=== PATIENT | female | born 1970 | race African-American/Black ===

== ENCOUNTER 2018-07-18 11:51 | Day surgery (SDC) | payer BC, OTHER ==
[~2018-07-18 11:51] MED LIST: DILAUDID IV PRN; LACTATED RINGERS 1,000 ML IV SCH; VERSED IV NR; ZOFRAN IV PRN
[2018-07-18] MEDS ORDERED: DECADRON ONE (13:44)
[2018-07-18] MEDS ORDERED: XYLOCAINE MPF 2% ONE (13:44)
[2018-07-18] MEDS ORDERED: DILAUDID ONE (13:44)
[2018-07-18] MEDS ORDERED: DIPRIVAN 10 MG/ML IV ONE (13:44)
[2018-07-18] MEDS ORDERED: ZOFRAN ONE (13:44)
--- NOTE | 2018-07-18 13:52 | Anesthesia Day of Surgery ---
Anesthesia Day of Surgery - Day of Surgery Patient Examined: Yes Patient H&P Reviewed: Yes Patient is NPO: Yes
--- NOTE | 2018-07-18 13:52 | Anesthesia Consultation ---
Anesthesia Consult and Med Hx Date of service: 07/18/18 - Airway Anesthetic Teeth Evaluation: Good ROM Head & Neck: Adequate Mental/Hyoid Distance: Adequate Mallampati Class: Class II Intubation Access Assessment: Probably Good - Pulmonary Exam CTA: Yes - Cardiac Exam Cardiac Exam: RRR - Pre-Operative Health Status ASA Pre-Surgery Classification: ASA1 Proposed Anesthetic Plan: General - Pulmonary Hx Smoking: No Hx Sleep Apnea: No (LUKAS PRE SCREEN LOW RISK.) - Cardiovascular System Hx Hypertension: No - Other Systems Hx Cancer: No
[2018-07-18] MEDS ORDERED: ANCEF/STERILE WATER 2 GM/20 ML IV NR (14:00)
[2018-07-18] MEDS ORDERED: WATER FOR IRRIG STERILE IR ONE (14:50)
--- NOTE | 2018-07-18 14:51 | Post Operative Note ---
Date of procedure: 07/18/18 Pre-op diagnosis: hematuria Post-op diagnosis: same Findings: swelling R orifice lesion Procedure: cysto biopsy rpgs Anesthesia: GETA Surgeon: RAMOS PEREZ Estimated blood loss: minimal Pathology: list (bladder) Specimen disposition: to lab Condition: stable Disposition: PACU
--- NOTE | 2018-07-18 14:52 | Discharge Summary ---
Short Stay Discharge Plan Activity: other (no strianing ) Weight Bearing Status: Full Weight Bearing Diet: regular Special Instructions: other (inc fluids ) Follow up with: DUNG LOZANO, TIMOTHY [Primary Care Provider] - 7 Days RAMOS PEREZ MD [Staff Physician] - 10 Days
--- NOTE | 2018-07-18 14:58 | Operative Report ---
PREOPERATIVE DIAGNOSIS: Hematuria, kidney stones. POSTOPERATIVE DIAGNOSES: Right distal ureterocele and inflammatory changes around the right orifice. PROCEDURE: Cystoscopy, small bladder biopsy around the right orifice, which was oozing, possibly recent passed stone and retrograde. SURGEON: Rajesh French MD ANESTHESIA: General. FINDINGS: This woman with hematuria. She had no flank pain. CT showed no distal stone but some renal stone. She now presents for cystoscopy. DESCRIPTION OF PROCEDURE: The patient brought to the operating room and placed on the operating table. Following induction of anesthesia, placed in lithotomy position, prepped and draped in usual sterile fashion. Cystourethroscopy showed ____ slightly papillary right orifice. This was oozing, especially at the 6-7 o'clock position. Biopsy was taken, being careful not to destroy or damage the epithelium at the orifice. Retrograde showed a ureterocele with no stone or filling defect within the orifice. The patient tolerated the procedure well, no complications. We watched and drained completely. We did not place a stent. She was brought to recovery room in stable condition. JOB# [id number] DIONY/ARUN
[2018-07-18 15:46] VITALS: BP 126/81
--- NOTE | 2018-07-19 07:51 | Fluoroscopy Report ---
FLUOROSCOPY RETROGRADE UROGRAPHY: HISTORY: Hematuria. FINDINGS: Fluoroscopy was provided by radiology during retrograde urography by the urologist. 10 fluoroscopic images were captured. There is adequate filling of the ureters and intrarenal collecting systems with no filling defects or anatomic abnormalities identified. Please correlate with the procedural report if needed. IMPRESSION: Retrograde pyelograms within normal limits.
== END 2018-07-18 17:10 | disposition home or self-care (01) ==
LOC: OR 11:51
PROVIDERS: ATTEND Urology
DX: N30.21 Other chronic cystitis with hematuria (principal); N20.0 Calculus of kidney; N28.89 Other specified disorders of kidney and ureter; E78.00 Pure hypercholesterolemia, unspecified
CPT/HCPCS: 52204; 74420; 81025; 88305; 88341; 88342; A4217; C1758; J0690; J1100; J1170; J2250; J2405; J2704; J7120; Q9967